=== PATIENT | female | born 1955 | race Caucasian/White ===

== ENCOUNTER 2016-08-24 02:00 | Observation (INO) | payer BC ==
[2016-08-24] MEDS ORDERED: NS 0.9% 1000 ML* 1,000 ML IV SCH (02:30)
[2016-08-24 03:18] LABS: Hematocrit 43 % (35-47); Hemoglobin 14.4 g/dl (12.0-16.0); Mean Corpuscular HGB Conc 33 g/dl (31-36); Mean Corpuscular Hemoglobin 32 pg (27-31); Mean Corpuscular Volume 96 fL (80-97); Mean Platelet Volume 8 um3 (7.4-10.4); Red Blood Count 4.51 10^6/ul (4.0-5.4); Red Cell Distribution Width 14 % (10.5-15); White Blood Count 5.6 10^3/ul (3.5-10.8)
[2016-08-24 03:26] LABS: ALT 13 U/L (7-52); AST 24 U/L (13-39); Albumin 4.1 g/dL (3.2-5.2); Alkaline Phosphatase 52 U/L (34-104); Anion Gap 6 mmol/L (2-11); BUN/Creatinine Ratio 13.3 (8-20); Blood Urea Nitrogen 8 mg/dL (6-24); C Reactive Protein 1.74 mg/L (< 5.00); CO2 Carbon Dioxide 25 mmol/L (22-32); Calcium 9.3 mg/dL (8.6-10.3); Chloride 94 mmol/L (101-111); Creatine Kinase 96 U/L (10-223); EGFR African American 130.7 (>60); EGFR Non-African American 101.6 (>60); Globulin 2.4 g/dL (2-4); Glucose 100 mg/dL (70-100); Lipase 13 U/L (11.0-82.0); Potassium 4.2 mmol/L (3.5-5.0); Sodium 125 mmol/L (133-145); Total Protein 6.5 g/dL (6.4-8.9)
[2016-08-24 03:29] LABS: Troponin I 0.01 ng/mL (<0.04)
[2016-08-24 03:44] LABS: Ammonia 51 mol/L (16-53)
[2016-08-24 03:46] LABS: B Type Natriuretic Peptide 31 pg/mL
[2016-08-24 04:01] LABS: TSH (Thyroid Stimulating Horm) 1.43 mcIU/mL (0.34-5.60)
[2016-08-24 04:06] LABS: Acetaminophen < 15 mcg/mL; Alcohol < 10 mg/dL (<10)
--- NOTE | 2016-08-24 05:50 | ED ---
Norman Hughes Salem, scribed for Royer Estrada MD on 08/24/16 at 0246 . Neurological HPI - HPI Summary HPI Summary: Patient is a 60 y/o F who presents to the ED per EMS s/p seizure about 1 hour ago. Pt has a hx of sz, but has not been on medication for the last 2 years. She states that she was here in March 2015 with similar sz, she saw Dr. Cardona who diagnosed her with convulsive syncope. She states that she has not been feeling well (chills and dizziness) for the last 24 hours. She states that she bit her tongue and was incontinent to urination during the sz. She denies CP , SOB, changes in urination or BM. Pt reports continued intake of EtOH, but denies withdrawal effects. - History of Current Complaint Chief Complaint: EDSeizure Stated Complaint: SEIZURE Hx Obtained From: Patient, Family/Clinical Material Handler, EMS Onset/Duration: Gradual Onset, Started minutes ago, Resolved Onset Severity: Moderate Current Severity: Moderate Seizure Severity: Moderate Pain Intensity: 5 Pain Scale Used: 0-10 Numeric Character: Dizzy, Other: - Chills. Syncope Context: Witnessed, Loss of Consciousness: No Aggravating: Nothing Alleviating: Nothing Associated Signs and Symptoms: Positive: Negative - Allergy/Home Medications Allergies/Adverse Reactions: Allergies Allergy/AdvReac Type Severity Reaction Status Date / Time No Known Allergies Allergy Verified 04/19/15 14:57 PMH/Surg Hx/FS Hx/Imm Hx Endocrine/Hematology History: Denies: Hx Anticoagulant Therapy, Hx Blood Disorders, Hx Blood Transfusions, Hx Bone Marrow Disease, Hx Diabetes, Hx Systemic Lupus Erythematosus, Hx Sickle Cell Disease, Hx Thyroid Disease, Hx Anemia, Hx Unexplained Bleeding, Other Endocrine/Hematological Disorders Cardiovascular History: Reports: Hx Hypertension Denies: Hx Pacemaker/ICD GI History: Reports: Hx Diverticulosis - HX diverticulitis with surgery for perfortated colon Denies: Hx Cirrhosis, Hx Crohn's Disease, Hx Gall Bladder Disease, Hx Gastroesophageal Reflux Disease, Hx Gastrointestinal Bleed, Hx Hiatal Hernia, Hx Irritable Bowel, Hx Jaundice, Hx Obstructive Bowel, Hx Ileostomy, Hx Pyloric Stenosis, Hx Ulcer, Other GI Disorders History: Denies: Hx Benign Prostatic Hyperplasia, Hx Chronic Renal Failure, Hx Dialysis, Hx Kidney Infection, Hx Kidney Stones, Hx Renal Disease, Other Problems/Disorders Musculoskeletal History: Reports: Hx Arthritis Denies: Hx Back Problems, Hx Bursitis, Hx Congenital Bone Abnormalities, Hx Fibromyalgia, Hx Gout, Hx Orthopedic Injury, Hx Osteoporosis, Hx Scoliosis, Hx Tendonitis, Other Musculoskeletal History Sensory History: Reports: Hx Contacts or Glasses Denies: Hx Cataracts, Hx Eye Injury, Hx Eye Prosthesis, Hx Glaucoma, Hx Legally Blind, Hx Macular Degeneration, Hx Vision Problem, Hx Deafness, Hx Hearing Aid, Hx Hearing Problem, Other Sensory Impairments Opthamlomology History: Reports: Hx Contacts or Glasses Denies: Hx Cataracts, Hx Eye Injury, Hx Eye Prosthesis, Hx Glaucoma, Hx Legally Blind, Hx Macular Degeneration, Hx Vision Problem, Other Sensory Impairments Neurological History: Reports: Hx Nerve Disease - Relapsing Remitting MS Denies: Hx Dementia, Hx Developmental Delay, Hx Headaches, Hx Migraine, Hx Seizures, Hx Spinal Cord Injury, Hx Transient Ischemic Attacks (TIA), Other Neuro Impairments/Disorders Psychiatric History: Denies: Hx Anxiety, Hx Attention Deficit Hyperactivity Disorder, Hx Eating Disorder, Hx Depression, Hx Panic Disorder, Hx Post Traumatic Stress Disorder, Hx Inpatient Treatment, Hx Community Mental Health Tx, Hx Schizophrenia, Hx Bipolar Disorder, Hx Suicide Attempt, Hx of Violent Episodes Against Others, Hx Substance Abuse, Other Psychiatric Issues/Disorders - Cancer History Hx Chemotherapy: No Hx Radiation Therapy: No Hx Palliative Cancer Treatment: No - Surgical History Surgery Procedure, Year, and Place: PERFIRATED COLON- REMOVED, HYSTERECTOMY Hx Anesthesia Reactions: No Infectious Disease History: No Infectious Disease History: Denies: Hx Clostridium Difficile, Hx Hepatitis, Hx Human Immunodeficiency Virus (HIV), Hx of Known/Suspected MRSA, Hx Shingles, Hx Tuberculosis, Hx Known/ Suspected VRE, Hx Known/Suspected VRSA, History Other Infectious Disease, Traveled Outside the [place] in Last 30 Days - Family History Known Family History: Positive: Other - [place]. - Social History Alcohol Use: Daily Alcohol Amount: 6-12 beers daily Hx Substance Use: No Substance Use Type: Reports: None Hx Tobacco Use: Yes Smoking Status (MU): Heavy Every Day Tobacco Smoker Type: Cigarettes Amount Used/How Often: 10 cigarettes Length of Time of Smoking/Using Tobacco: 27 years Have You Smoked in the Last Year: Yes Review of Systems Positive: Chills Positive: Other - Bit tongue with bleeding. Negative: Chest Pain Negative: Shortness Of Breath Positive: other - No changes in urination or BM. Neurological: Other - Seizure. Dizziness. All Other Systems Reviewed And Are Negative: Yes Physical Exam Triage Information Reviewed: Yes Vital Signs On Initial Exam: Initial Vitals Temp Pulse Resp BP Pulse Ox 98.3 F 108 20 167/92 99 08/24/16 02:00 08/24/16 02:00 08/24/16 02:00 08/24/16 02:00 08/24/16 02:00 Vital Signs Reviewed: Yes Appearance: Positive: Well-Appearing, No Pain Distress Skin: Positive: Warm, Skin Color Reflects Adequate Perfusion, Dry Head/Face: Positive: Normal Head/Face Inspection Eyes: Positive: EOMI, CHAPIS ENT: Positive: Other - Right side of tongue: ecchymotic. No active bleeding or open laceration. Neck: Positive: Supple, Nontender Respiratory/Lung Sounds: Positive: Clear to Auscultation, Breath Sounds Present Cardiovascular: Positive: RRR Abdomen Description: Positive: Nontender, Soft Musculoskeletal: Positive: Normal, Strength/ROM Intact Neurological: Positive: Normal, Sensory/Motor Intact, Alert, Oriented to Person Place, Time Psychiatric: Positive: Affect/Mood Appropriate Diagnostics - Vital Signs Vital Signs Temp Pulse Resp BP Pulse Ox 08/24/16 02:00 98.3 F 108 20 167/92 99 - Laboratory Lab Results: Lab Results 08/24/16 08/24/16 08/24/16 Range/Units 02:59 02:59 02:59 WBC 5.6 (3.5-10.8) 10^3/ul RBC 4.51 (4.0-5.4) 10^6/ul Hgb 14.4 (12.0-16.0) g/dl Hct 43 (35-47) % MCV 96 (80-97) fL MCH 32 H (27-31) pg MCHC 33 (31-36) g/dl RDW 14 (10.5-15) % Plt Count 214 (150-450) 10^3/ul MPV 8 (7.4-10.4) um3 Neut % (Auto) 79.4 (38-83) % Lymph % (Auto) 9.1 L (25-47) % Payne % (Auto) 10.4 H (1-9) % Eos % (Auto) 0.7 (0-6) % Baso % (Auto) 0.4 (0-2) % Absolute Neuts (auto) 4.4 (1.5-7.7) 10^3/ul Absolute Lymphs (auto) 0.5 L (1.0-4.8) 10^3/ul Absolute Monos (auto) 0.6 (0-0.8) 10^3/ul Absolute Eos (auto) 0 (0-0.6) 10^3/ul Absolute Basos (auto) 0 (0-0.2) 10^3/ul Absolute Nucleated RBC 0 10^3/ul Nucleated RBC % 0 Sodium 125 L (133-145) mmol/L Potassium 4.2 (3.5-5.0) mmol/L Chloride 94 L (101-111) mmol/L Carbon Dioxide 25 (22-32) mmol/L Anion Gap 6 (2-11) mmol/L BUN 8 (6-24) mg/dL Creatinine 0.60 (0.51-0.95) mg/dL Est GFR ( Amer) 130.7 (>60) Est GFR (Non-Af Amer) 101.6 (>60) BUN/Creatinine Ratio 13.3 (8-20) Glucose 100 (70-100) mg/dL Lactic Acid (0.5-2.0) mmol/L Calcium 9.3 (8.6-10.3) mg/dL Magnesium 2.0 (1.9-2.7) mg/dL Total Bilirubin 0.60 (0.2-1.0) mg/dL AST 24 (13-39) U/L ALT 13 (7-52) U/L Alkaline Phosphatase 52 (34-104) U/L Ammonia 51 (16-53) mol/L Total Creatine Kinase 96 (10-223) U/L CK-MB (CK-2) 1.9 (0.6-6.3) ng/mL Troponin I 0.01 (<0.04) ng/mL C-Reactive Protein 1.74 (< 5.00) mg/L B-Natriuretic Peptide 31 ( - 100) pg/mL Total Protein 6.5 (6.4-8.9) g/dL Albumin 4.1 (3.2-5.2) g/dL Globulin 2.4 (2-4) g/dL Albumin/Globulin Ratio 1.7 (1-3) Lipase 13 (11.0-82.0) U/L TSH 1.43 (0.34-5.60) mcIU/mL Acetaminophen < 15 mcg/mL Serum Alcohol < 10 (<10) mg/dL 08/24/16 Range/Units 02:59 WBC (3.5-10.8) 10^3/ul RBC (4.0-5.4) 10^6/ul Hgb (12.0-16.0) g/dl Hct (35-47) % MCV (80-97) fL MCH (27-31) pg MCHC (31-36) g/dl RDW (10.5-15) % Plt Count (150-450) 10^3/ul MPV (7.4-10.4) um3 Neut % (Auto) (38-83) % Lymph % (Auto) (25-47) % Payne % (Auto) (1-9) % Eos % (Auto) (0-6) % Baso % (Auto) (0-2) % Absolute Neuts (auto) (1.5-7.7) 10^3/ul Absolute Lymphs (auto) (1.0-4.8) 10^3/ul Absolute Monos (auto) (0-0.8) 10^3/ul Absolute Eos (auto) (0-0.6) 10^3/ul Absolute Basos (auto) (0-0.2) 10^3/ul Absolute Nucleated RBC 10^3/ul Nucleated RBC % Sodium (133-145) mmol/L Potassium (3.5-5.0) mmol/L Chloride (101-111) mmol/L Carbon Dioxide (22-32) mmol/L Anion Gap (2-11) mmol/L BUN (6-24) mg/dL Creatinine (0.51-0.95) mg/dL Est GFR ( Amer) (>60) Est GFR (Non-Af Amer) (>60) BUN/Creatinine Ratio (8-20) Glucose (70-100) mg/dL Lactic Acid 2.0 (0.5-2.0) mmol/L Calcium (8.6-10.3) mg/dL Magnesium (1.9-2.7) mg/dL Total Bilirubin (0.2-1.0) mg/dL AST (13-39) U/L ALT (7-52) U/L Alkaline Phosphatase (34-104) U/L Ammonia (16-53) mol/L Total Creatine Kinase (10-223) U/L CK-MB (CK-2) (0.6-6.3) ng/mL Troponin I (<0.04) ng/mL C-Reactive Protein (< 5.00) mg/L B-Natriuretic Peptide ( - 100) pg/mL Total Protein (6.4-8.9) g/dL Albumin (3.2-5.2) g/dL Globulin (2-4) g/dL Albumin/Globulin Ratio (1-3) Lipase (11.0-82.0) U/L TSH (0.34-5.60) mcIU/mL Acetaminophen mcg/mL Serum Alcohol (<10) mg/dL Result Diagrams: 08/24/16 02:59 08/24/16 02:59 Lab Statement: Any lab studies that have been ordered have been reviewed, and results considered in the medical decision making process. - Radiology CXR Radiology Interpretation Completed By: ED Physician - Normal. - CT BRAIN CT Interpretation Completed By: Radiologist - FINDINGS: There is no CT evidence of acute territorial infraction. Patchy periventricular and subcortical white matter hypoattenuations seen. These are nonspecific and can be seen in the setting of chronic microvascular ischemic changes. Intracranial vascular calcifications noted. There is no acute intracranial hemorrhage, mass effect or cerebral edema identified. The ventricles are unremarkable. Basilar cisterns are patent. No abnormal intra-axial or extra-axial fluid collection is seen. The bones of the calvarium and imaged skull base demonstrate no acute abnormality. The imaged paranasal sinuses and mastoid air cells are unremarkable. Imaged orbits are unremarkable. - EKG 0341 EKG Rhythm: Sinus Rhythm - NSR @ 88bpm. Ectopy: None EKG Interpretation: Minimal ST elevation anterior leads compared to prior EKG on 04/03/15. Re-Evaluation - Re-Evaluation First Eval Re-Evaluation Time: 04:11 Comment: Informed pt of imaigng results and plan. Course/Dx - Course Course Of Treatment: NO CRITICAL CARE TIME. DISCUSSED RESULTS WITH PATIENT/ . ADMIT HOSPITALIST STABLE. - Diagnoses Provider Diagnoses: Seizure, Hyponatremia - Physician Notifications Discussed Care Of Patient With: Orlando Jay Time Discussed With Above Provider: 04:02 Instructed by Provider To: Admit As Inpatient Admit/Transition Orders Completed By ED Provider: Yes Discharge - Discharge Plan Condition: Stable Disposition: ADMITTED TO [facility] The documentation as recorded by the Norman hidalgo Salem accurately reflects the service I personally performed and the decisions made by me, Royer Estrada MD.
[2016-08-24] MEDS: Heparin VIAL(*) 5000 UNITS/ML VIAL (FIVE THOUSAND) SUBCUT SCH ×3 (05:59→21:43)
[2016-08-24] MEDS ORDERED: levETIRAcetam 500 MG IVPREMIX* 500 MG/100 ML BAG IV SCH (06:00)
--- NOTE | 2016-08-24 07:50 | RAD ---
INDICATION: Seizure COMPARISON: Most recent comparison chest x-ray dated April 03, 2015 TECHNIQUE: Single AP portable view of the chest was obtained. FINDINGS: Image quality is compromised due to the relative inferiority of a portable chest x-ray. The heart and mediastinum exhibit normal size and contour. The lungs are grossly clear. There is no evidence of a large pleural effusion. Visualized bones are normal for the patient's age. IMPRESSION: No radiographic evidence for acute cardiopulmonary abnormality on this portable chest x-ray.
--- NOTE | 2016-08-24 07:50 | HP ---
CC: [facility]. * HISTORY AND PHYSICAL.: DATE OF ADMISSION: 08/24/16. CHIEF COMPLAINT: Seizure. HISTORY OF PRESENT ILLNESS: The patient is a 60-year-old woman, who said last night she was not feeling good before she went to the bed. She has had chills and kept waking up. She could not put finger on it, but she said something just come over her. Apparently, at 1 a.m. while asleep, her noticed she started shaking the whole bed. He watched her start hitting the night stand over and over and he had moved the lamp away. It lasted about two minutes. She lost control of her bladder and urinated. She bit her tongue. She bit her tongue. When it was done he immediately called 911 and she was brought to the ER for evaluation. The patient said she was quite confused afterwards as well and is still clearing up. PAST MEDICAL HISTORY: Significant for MS and hypertension. PAST SURGICAL HISTORY: Significant for hysterectomy and colon resection due to perforation secondary to diverticulitis. CURRENT MEDICATIONS: List is being updated, not available for review. ALLERGIES: She has no known drug allergies to medications. FAMILY HISTORY: Significant for cancer. SOCIAL HISTORY: Still smokes two-thirds of a pack per day. Denies need for nicotine replacement. Drinks beer occasionally 5 to 6 nights. She is . She has step children. Her surrogate decision maker is her , Cyril Noriega. REVIEW OF SYSTEMS: A 14-point review of systems was completed with the patient. All pertinent positives and negatives are in the history of present illness, otherwise it is negative. PHYSICAL EXAMINATION GENERAL: A pleasant woman, lying in bed, in no acute distress. VITAL SIGNS: Temperature 98.3 degrees, heart rate 108 beats per minute, respiratory rate 20 breaths per minute, pulse oxygenation 99% on room air, blood pressure 167/92. HEENT: Normocephalic, atraumatic. Pupils are equal, round, and reactive to light. Moist mucous membranes. NECK: Supple. No JVD, bruits, palpable thyroid, or lymphadenopathy. CHEST: Clear to auscultation and percussion bilaterally. CARDIOVASCULAR: S1, S2 appreciated. Regular rate and rhythm. No murmurs, gallops or rubs. ABDOMEN: Positive bowel sounds in all 4 quadrants. Soft, nontender, nondistended. No hepatosplenomegaly. EXTREMITIES: No cyanosis, clubbing or edema. +2 pulses bilaterally. NEURO: Alert and oriented x3, moves all extremities. Motor strength is 5/5 in upper and lower extremities. Cranial nerves II through XII grossly intact. SKIN: No rashes or abnormalities. DIAGNOSTIC STUDIES/LABORATORY DATA: White blood cell count 5.6, hemoglobin 14.4, hematocrit 43, platelets are 214. Sodium 125, potassium 4.2, chloride 95, CO2 25, BUN 8, creatinine 1.60, glucose 100. Lactic acid is 2. Urine is negative for alcohol. EKG shows normal sinus rhythm at 88 beats per minute, normal axes, no acute ST- T wave changes. Brain CT shows no CT evidence of acute territorial infarction, patchy periventricular and subcortical white matter hypoattenuation seen. These are nonspecific and can be seen in the setting of chronic microvascular ischemic changes, intracranial vascular calcification noted. There is no acute intracranial hemorrhage, mass effect or cerebral edema identified. The ventricles are unremarkable. Basal cisterns are patent. Normal intraaxial and extraaxial fluid collection is seen. The bones of the calvarium and the image of skull base demonstrate no acute abnormality. The images of paranasal sinuses and mastoid air cells are unremarkable. Imaged orbits are unremarkable. ASSESSMENT AND PLAN: 1. Seizure. Actually the patient came in, was evaluated and thought to have convulsive syncope. However, this does sound like a true seizure to me. I do not know why she had chills and she denies urinary symptoms, but I will get a urinalysis while here. She was started on Keppra 500 mg IV q.12 hours. I will get an EEG. I will get an MRI of her brain and we should ask Neurology to evaluate her as well. 2. Multiple sclerosis. We will get current medication list updated and treat. She was on Copaxone and apparently is on same. 3. Hypertension. Blood pressure is somewhat high, but we will have to get her medications. She was on amlodipine. We will update this list shortly. 4. FEN. Regular diet. 5. DVT prophylaxis, heparin subcu. 6. The patient is a full code. TIME SPENT: Over 75 minutes were spent on this H and P, more than 40 minutes were spent in direct face to face contact with the patient in evaluation, physical exam, counseling and coordination of care. [id number] #: [id number] [facility] MEDICAL CENTERGilberto
--- NOTE | 2016-08-24 07:55 | RAD ---
INDICATION: Seizure COMPARISON: CT of the brain April 03, 2015 TECHNIQUE: Contiguous axial sections of the brain were obtained from the skull base to the vertex without contrast. FINDINGS: The ventricles, cisterns and sulci are within normal limits. There is mild periventricular and subcortical white matter hypoattenuation most consistent with chronic microvascular disease. Immediately lateral to the anterior horn of the left ventricle (image 11) there is a more focal 1 cm area of hypoattenuation. More inferiorly in the white matter tracts of the frontal lobe (image 15) there is a more focal 7 mm area of hypoattenuation. Both of these areas are unchanged from the previous CT of the brain. At the right subinsular cortex (image 13) there is a 6 mm focal hypodensity at the border of the robles and white matter that is unchanged from the previous CT of the brain. Otherwise the robles-white matter differentiation is adequately maintained and there is no sulcal effacement. No significant focal abnormality or mass effect is present. There is no evidence for intracranial hemorrhage. No significant focal osseous abnormality is present. The visualized portion of the paranasal sinuses and mastoid air cells appear clear. IMPRESSION: CT findings are consistent with chronic microvascular disease at has not changed substantially since the April 03, 2015 CT of the brain.
[2016-08-24 09:05] LABS: Prolactin 9.7 ng/mL (1.0-25.0)
[2016-08-24 10:20] LABS: BUN/Creatinine Ratio 14.9 (8-20); Calcium 8.3 mg/dL (8.6-10.3); EGFR African American 173.3 (>60); EGFR Non-African American 134.7 (>60); Potassium 3.9 mmol/L (3.5-5.0)
[2016-08-24] MEDS ORDERED: Gadoteridol* (CONTRAST) 279.3 MG/ML 10 ML IV ONE (11:12)
--- NOTE | 2016-08-24 11:48 | RAD ---
HISTORY: Seizure, history of multiple sclerosis COMPARISONS: April 22, 2015 TECHNIQUE: The following sequences were obtained of the head: Sagittal FLAIR images, axial T2-weighted images, axial FLAIR images, axial susceptibility weighted images, axial T1-weighted images, coronal T1, T2 and FLAIR images through the mesial temporal lobes. Additionally, axial diffusion-weighted images were obtained with calculated apparent diffusion coefficients. Additionally, sagittal and axial T1 weighted images with thin section coronal T1-weighted images through the mesial temporal lobes were obtained after contrast enhancement with a gadolinium-based intravenous contrast agent. FINDINGS: HEMORRHAGE/INFARCT: There is no hemorrhage or acute infarct. MASSES/SHIFT: There is no mass or shift. EXTRA-AXIAL SPACES/MENINGES: There are no extra-axial fluid collections. SULCI AND VENTRICLES: The sulci and ventricles are normal in size and position for the patient's stated age. CEREBRUM: Again noted are multiple white matter lesions in the periventricular and subcortical white matter. These are similar in appearance and distribution to the April 22, 2015 examination. There is no associated abnormal enhancement. The mesial temporal lobes are symmetric. There is no appreciable cortical dysplasia or heterotopia. BRAINSTEM: There are no focal parenchymal abnormalities. CEREBELLUM: There are no focal parenchymal abnormalities. The cerebellar tonsils are normal in size and position. SELLA: The sella is normal. PINEAL: The pineal region is clear. CP ANGLE/TEMPORAL BONES: The labyrinthine structures are grossly normal. VESSELS: Normal flow-voids are noted within the visualized vertebral vasculature. DIFFUSION ABNORMALITIES: There are no diffusion abnormalities. PARANASAL SINUSES/MASTOIDS: The paranasal sinuses are clear. ORBITS: The orbits are unremarkable. BONES AND SOFT TISSUE: No bone or soft tissue abnormalities are noted. OTHER: None IMPRESSION: 1. MULTIPLE WHITE MATTER LESIONS, MOST CONSISTENT WITH DEMYELINATING PLAQUE GIVEN THE HISTORY OF MULTIPLE SCLEROSIS. 2. THERE IS BEEN NO SIGNIFICANT CHANGE COMPARED TO APRIL 22, 2015. 3. THERE IS NO ASSOCIATED ABNORMAL ENHANCEMENT TO SUGGEST ACTIVE INFLAMMATION. 4. THERE IS NO APPRECIABLE CORTICAL DYSPLASIA OR HETEROTOPIA. THE MESIAL TEMPORAL LOBES ARE SYMMETRIC.
[2016-08-24] MEDS ORDERED: Lidocaine 2% VISCOUS* 15 ML UDC SWISH SPIT PRN (13:48)
--- NOTE | 2016-08-24 14:28 | PN ---
Subjective Date of Service: 08/24/16 Interval History: This is a 60 yo female that was admitted yesterday after a convulsant episode at home. Patient was sleeping when something woke her up and she had an odd sensation after which her reported that she convulsed and she remained lethargic and somewhat confused for sometime after reaching the ER. She was started on IV Keppra. She had a similar episode in [place] but it sounded to be more of a vagal episode at that time and was not started on an antiepileptic at that time. She has not had any additional seizure activity since admission. She reports that she is quite lethargic today but denies VIRAMONTES, new weakness, numbness or tingling. Objective Active Medications: Heparin Sodium (Porcine) (Heparin Vial(*)) 5,000 units SUBCUT Q8HR [facility] Last Admin: 08/24/16 13:50 Dose: 5,000 units Sodium Chloride (Ns 0.9% 1000 Ml*) 1,000 mls @ 150 mls/hr IV PER RATE [facility] Last Admin: 08/24/16 02:35 Dose: 150 mls/hr Levetiracetam (Keppra Tab*) 500 mg PO BID [facility] Lidocaine (Xylocaine 2% Viscous*) 20 ml SWISH SPIT TID PRN PRN Reason: tongue pain Last Admin: 08/24/16 14:14 Dose: 20 ml Vital Signs: Temp Pulse Resp BP Pulse Ox 98.2 F 80 15 141/80 98 08/24/16 11:54 08/24/16 11:54 08/24/16 11:54 08/24/16 11:54 08/24/16 11:54 Oxygen Devices in Use Now: None Appearance: Fatigued appearing woman in NAD. Ears/Nose/Mouth/Throat: - - laceration and ecchymosis of the R portion of her tongue that is not actively bleeding Respiratory: Symmetrical Chest Expansion and Respiratory Effort, Clear to Auscultation Cardiovascular: NL Sounds; No Murmurs; No JVD, RRR Extremities: No Edema Neurological: Alert and Oriented x 3 Result Diagrams: 08/24/16 02:59 08/24/16 09:27 Additional Lab and Data: . Assess/Plan/Problems-Billing Assessment: This is a 60 yo female with MS who presented after a convulsant episode at home that occurred during sleep. - Patient Problems (1) Seizure Comment: Episode consistent with a seizure Appreciate neuro consult No change noted on MRI, EEG report pending but reviewed by Dr Cardona Plan to cont Keppra at 500 mg bid (2) Hyponatremia Comment: Patient states that she has not restarted the HCTZ stopped during her last admission Likely due to beer consumption Improving with NS rehydration (3) Multiple sclerosis Comment: Stable Followed by Dr Cardona No new lesions on MRI (4) HTN (hypertension) Comment: Normotensive (5) ETOH abuse Comment: Patient admits to regular beer consumption, but vague about the volume She doesn't give a clear answer when asked if she thinks that her alcohol consumption is of concern to her or family members (6) Full code status (7) DVT prophylaxis Comment: heparin sub-q Status and Disposition: Inpatient. Anticipate likely dc tomorrow.
--- NOTE | 2016-08-24 16:07 | CONS ---
CC: [facility] * NEUROLOGY CONSULTATION: DATE OF CONSULTATION: 08/24/16 REFERRING PROVIDER: Dr. Jay. LOCATION: She is an inpatient, room 434. CHIEF COMPLAINT: Seizure. HISTORY OF PRESENT ILLNESS: Gayathri Duffy is a 60-year-old woman well known to me for outpatient treatment of her multiple sclerosis. She was hospitalized in March with a convulsive episode, which I thought was probably convulsive syncope. Last night, she was not feeling well and went to bed a little early. 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 According to the history from Dr. Jay got from her , he awoke with her convulsion next to her in bed. It lasted apparently at least several minutes. She was incontinent of urine and ended up biting her tongue. After that she was confused and ambulated out of the house by ambulance which was summoned. She was started on levetiracetam this morning. PAST MEDICAL HISTORY: Notable for: 1. Multiple sclerosis. 2. Hypertension. MEDICATIONS: Medications at home include: 1. Copaxone. 2. Climara. 3. Multivitamins. 4. Losartan 100 mg p.o. q.d. ALLERGIES: She did not have a drug allergies. FAMILY HISTORY: Noncontributory. REVIEW OF SYSTEMS: Negative for recent fevers or dysuria or coughs. Weight has been stable. She is administrating her Copaxone regularly. No change in vision or double vision. No back or neck pain. No headache. No recent falls. PHYSICAL EXAMINATION: She is well-nourished and well-hydrated, temperature 98.2 , blood pressure 140/80, heart rate in the 70s and regular. Heart is in a regular rate and rhythm without murmurs. Carotid pulses are symmetrical and there are no cervical bruits. Head is atraumatic. Neck is supple. Lungs are clear. There are lateral bite mauricio on her tongue, particularly the right side. Neurological Exam: Pupils react equally and there is no afferent pupillary defect. Funduscopic exam reveals pale discs bilaterally. Eye movements are choppy, but full. Facial musculature is symmetric. Speech has a mild lingual dysarthria. Facial sensation is intact to light touch. Motor exam reveals normal muscle tone and strength in limbs proximally and distally. There may be a mild spastic catch in the legs. [id number] maneuvers are normal. There is no rest or action tremor. Reflexes are quite brisk diffusely. She is a little bit tired, but otherwise alert. She is oriented to person, place, and time. Language is fluent. She has good attention, concentration, and fund of knowledge. DIAGNOSTIC STUDIES/LABORATORY DATA: Laboratory data includes an EEG, which shows bihemispheric slowing, worse on the left side. There are some poorly formed left mid temporal sharp waves. Brain MRI reveals multiple lesions consistent with her multiple sclerosis, but no new or enhancing lesions since her last MRI. Other laboratory data is notable for normal CBC, normal INR, and PTT, chemistry profile notable for sodium of 125 early this morning, which came to 128 on recheck. Her troponin is 0.01. IMPRESSION AND PLAN: Impression is that of a seizure probably secondary to her multiple sclerosis. Her sodium is a little bit low, but not much, and at this point it is pretty clear that she was postictal by description. I agree with the starting of Keppra 500 mg twice per day. I told Gayathri she cannot drive and must notify the department of motor vehicles. I told her that Keppra can cause some side effects including sedation and mood disorders and irritability. I told her that if she has significant side effects, we will switch to different anticonvulsant. I will see her in followup in my office. [id number]/[facility] #: [id number] JELANI
[2016-08-24] MEDS: levETIRAcetam TAB* 500 MG PO SCH (19:37)
--- NOTE | 2016-08-25 03:35 | EEG ---
ELECTROENCEPHALOGRAPHY: DATE OF STUDY: 08/24/16 - ROOM #434 REFERRING PHYSICIAN: Dr. Jay. LOCATION: She is an inpatient in room [address]-South. CLINICAL PROBLEM: New-onset seizure in a patient with multiple sclerosis. MEDICATIONS: Include: 1. Keppra. 2. Subcutaneous heparin. 3. Copaxone. REPORT: This 16-channel EEG is remarkable for background rhythms at the onset of the tracing consisting of fairly diffuse theta activity. Interspersed are faster rhythms bifrontally and a poorly formed alpha rhythm in the occipital derivations. The patient is awake. Slower rhythms are seen more predominantly from the left hemisphere than the right. The patient drowses with increase in slow activity, but stage II sleep is not achieved. Occasional phase reversing in the left midtemporal sharp waves and occasional midtemporal spikes are seen, particularly later in the tracing and particularly during drowsiness. CLINICAL IMPRESSION: Abnormal EEG due to generalized slowing and disorganization of background rhythms as well as phase reversing spikes and sharp waves in the left temporal region consistent with a possible epileptiform focus in the left temporal region. [id number]/[facility] #: [id number] MTDD
[2016-08-25] MEDS: Heparin VIAL(*) 5000 UNITS/ML VIAL (FIVE THOUSAND) SUBCUT SCH (04:58)
[2016-08-25 07:27] VITALS: BP 137/83
[2016-08-25] MEDS: levETIRAcetam TAB* 500 MG PO SCH (07:30)
[2016-08-25 08:00] LABS: Urine Bacteria Absent (Absent); Urine Bilirubin Negative (Negative); Urine Glucose Negative (Negative); Urine Nitrite Negative (Negative)
[2016-08-25 09:08] LABS: Calcium 8.7 mg/dL (8.6-10.3); EGFR African American 161.3 (>60); EGFR Non-African American 125.4 (>60); Potassium 3.8 mmol/L (3.5-5.0)
--- NOTE | 2016-08-25 12:30 | DS ---
CC: JEANNIE Qiu; Dr. Dulce MD. * DISCHARGE SUMMARY: DATE OF ADMISSION: 08/24/16 DATE OF DISCHARGE: 08/25/16 PRIMARY CARE PROVIDER: JEANNIE Qiu CONSULTING NEUROLOGIST: Toby Cardona MD. DISCHARGING PROVIDER: VICKEY Loera. SUPERVISING PHYSICIAN: Joshua Bender MD.* (DICTATED BY VICKEY LOERA) PRIMARY DISCHARGE DIAGNOSES: 1. Seizure - starting antiepileptics. 2. Hyponatremia. SECONDARY DISCHARGE DIAGNOSES: 1. Multiple sclerosis, which appears to be stable and followed by Dr. Cardona. 2. Hypertension. 3. Alcohol abuse. DISCHARGE MEDICATIONS: 1. Betamethasone 0.05% ointment applied topically twice daily as needed. 2. Climara 0.25 mg transdermally weekly. 3. Copaxone 20 mg subcu daily. 4. Losartan 100 mg p.o. daily. 5. Multivitamin 1 tablet p.o. daily. 6. Keppra 500 mg p.o. twice daily. MEDICATION CHANGES: Start Keppra. HOSPITAL IMAGIN. CT of the brain shows chronic microvascular disease changes that have not changed since prior scan. 2. Chest x-ray shows no acute process. 3. MRI of the brain shows multiple white matter lesions most consistent with demyelinating plaque. There has been no significant change compared to April 2015 exam. There is no associated abnormal enhancement to suggest active inflammation. 4. EKG demonstrates a sinus rhythm without ischemic changes. 5. EEG shows an abnormal EEG due to generalized swelling, disorganization of background rhythm as well as phase reversing spikes and sharp waves in the left temporal region consistent with possible epileptiform focus in the left temporal region. HOSPITAL COURSE: This is a 60-year-old female with multiple sclerosis followed by Dr. Cardona who presented after a seizure like episode at home. The patient was lying in bed and asleep, when she awoke for unknown reasons and she states that she had a prodrome sensation that she has difficulty describing but sounded almost like a feeling of anxiety or tingling sensation across her body and then per her 's report, she subsequently had a convulsion episode after which she was quite weak and confused for some time. She was transported to the emergency department for further evaluation. Initial labs demonstrated a normal CBC, moderate hyponatremia with a sodium of 125. Remainder of labs unremarkable. Initial CT of the brain showed nothing acute. The patient was subsequently admitted to the hospital for concern of a seizure. The patient had a similar episode in March of this year, but she had more of a prodrome that seemed consistent with a vagal episode. The patient was not started on anticonvulsant medications at that time. She has been asymptomatic since. During the patient's hospital stay, she remained asymptomatic. No additional seizure like activity. She was evaluated by Dr. Cardona who is also her primary neurologist. An MRI of her brain was completed, which showed no active plaques or significant change when compared to her prior study from 2016. The patient was started on Keppra and seemed to tolerate this well. The patient was noted to be hyponatremic and this was a similar presentation to when she was evaluated in March. The patient does have a significant history of beer consumption. The patient was not terribly forthcoming about her drinking history during her hospital stay, but simply stated "she is not drinking any less." Some education was provided as to how this can lower her seizure threshold and she was encouraged to decrease her volume or discontinue her use altogether. Her sodium levels improved with hydration with normal saline. DISPOSITION AND FOLLOWUP PLAN: The patient is being discharged to home. She received specific instructions to not be driving or operate other heavy equipment. She is being discharged with Keppra as listed above. Followup made for her to see Dr. Cardona in several weeks and would recommend followup with her primary care provider regarding this hospital stay as well. VICKEY LOERA [id number]/[facility] #: [id number] JELANI
== END 2016-08-25 09:50 | disposition home or self-care (01) | DRG 53 ==
LOC: ED 02:00 → INTOOBSV 05:12 → MEDTELE 05:12
PROVIDERS: ADMIT Internal Medicine; ATTEND Internal Medicine
PROC: 4A10X4Z Monitoring of Central Nervous Electrical Activity, External Approach (ICD-10-PCS; principal; 2016-08-24)
DX: R56.9 Unspecified convulsions (principal); E87.1 Hypo-osmolality and hyponatremia; I10 Essential (primary) hypertension; M19.90 Unspecified osteoarthritis, unspecified site; G35 Multiple sclerosis; Z80.9 Family history of malignant neoplasm, unspecified; F17.210 Nicotine dependence, cigarettes, uncomplicated; F10.10 Alcohol abuse, uncomplicated; Y90.9 Presence of alcohol in blood, level not specified
CPT/HCPCS: 36415; 70450; 70553; 71010; 80048; 80053; 80320; 80329; 81003; 81015; 82140; 82550; 82553; 83605; 83690; 83735; 83880; 84146; 84443; 84484; 85025; 85610; 85730; 86140; 87086; 93005; 95819; 99406; A9270-GY; A9579; G0480; J1644

== ENCOUNTER 2019-09-09 08:43 | Observation (INO) ==
[~2019-09-09 08:43] MED LIST: Lactated Ringers 1000 ml BAG 1,000 ML IV SCH
[2019-09-09] MEDS ORDERED: Buffered Lidocaine 1% SYRIN 1 ml INTRADERM ONE (09:10)
[2019-09-09] MEDS ORDERED: ceFAZolin 2 GM PREMIX in ORs 2 GM/50 ML BAG ONE (09:10)
[2019-09-09] MEDS ORDERED: HYDROmorphone 1 MG/1 ML SYRINGE IV PRN (10:11)
[2019-09-09] MEDS ORDERED: Naloxone 0.4 mg VIAL 0.4 mg/ml 1 ml VIAL IV PRN (10:11)
[2019-09-09] MEDS ORDERED: fentaNYL 100 mcg/2 ml 50 MCG/ML VIAL ONE (10:51)
[2019-09-09] MEDS ORDERED: Midazolam 2 mg/2 ml VIAL 1 mg/ml 2 ml VIAL (2 mg) ONE (10:52)
[2019-09-09] MEDS ORDERED: Acetaminophen IV 1 GM/100ML 100 ML ONE (11:31)
[2019-09-09] MEDS ORDERED: Bupivacaine 0.5% SDV PF 30ML VIAL ONE (11:32)
[2019-09-09] MEDS ORDERED: Lactulose 30 ml UDC PO PRN (13:30)
[2019-09-09] MEDS ORDERED: Ondansetron 4 mg VIAL 2 MG/ML 2 ml VIAL IV PRN (13:30)
[2019-09-09] MEDS ORDERED: diPHENhydraMINE 25 mg TAB PO PRN (13:30)
[2019-09-09] MEDS ORDERED: diPHENhydraMINE IV 50 MG/ML 1 ml VIAL (BENADRYL) IV PRN (13:30)
[2019-09-09] MEDS ORDERED: Magnesium Hydroxide LIQ 30 ML UDC PO PRN (13:30)
[2019-09-09] MEDS ORDERED: Morphine 2 MG/ML SYRINGE IV PRN (13:30)
[2019-09-09] MEDS ORDERED: Ondansetron ODT 4 mg TAB 4 MG TAB PO PRN (13:30)
[2019-09-09] MEDS: Lactated Ringers 1000 ml BAG 1,000 ML IV SCH (14:40)
[2019-09-09] MEDS ORDERED: CMC:Levetiracetam XR 500 MG TAB.XR PO SCH (18:00)
[2019-09-09 18:27] LABS: BUN/Creatinine Ratio 13.6 (8-20); Calcium 8.5 mg/dL (8.6-10.3); EGFR African American 124.2 (>60); EGFR Non-African American 102.6 (>60); Potassium 3.6 mmol/L (3.5-5.0)
[2019-09-09] MEDS: ceFAZolin 1 GM ADVAN(*) 1 GM in NS 0.9% 50 ML 50 ML IVPB SCH (20:13)
[2019-09-09] MEDS: Magnesium Hydroxide LIQ 30 ML UDC PO SCH (21:49)
[2019-09-10] MEDS ORDERED: Polyethylene Glycol 3350 17 GM PACKET PO PRN (00:01)
[2019-09-10] MEDS: ceFAZolin 1 GM ADVAN(*) 1 GM in NS 0.9% 50 ML 50 ML IVPB SCH ×2 (04:00→11:01)
[2019-09-10] MEDS: Lactated Ringers 1000 ml BAG 1,000 ML IV SCH (04:00)
[2019-09-10 05:56] LABS: Hematocrit 28 % (35-47); Hemoglobin 10.1 g/dL (12.0-16.0); Platelet Count 210 10^3/uL (150-450)
[2019-09-10 06:28] LABS: Calcium 8.5 mg/dL (8.6-10.3); EGFR African American 150.3 (>60); EGFR Non-African American 124.2 (>60); Potassium 4.4 mmol/L (3.5-5.0)
[2019-09-10] MEDS: Magnesium Hydroxide LIQ 30 ML UDC PO SCH (08:03)
[2019-09-10] MEDS ORDERED: Vitamin THERAPEUTIC TAB PO SCH (09:00)
[2019-09-10] MEDS ORDERED: Glatiramer(NF) 20 MG/ML 1 ML SYRINGE SUBCUT SCH (09:00)
[2019-09-10 11:35] VITALS: BP 120/69
== END 2019-09-10 14:30 | disposition home or self-care (01) ==
LOC: INTOOBSV 08:43 → AA 08:43 → SSU 13:30
PROVIDERS: ADMIT Orthopaedic Surgery Adult Reconstructive Orthopaedic Surgery; ATTEND Orthopaedic Surgery Adult Reconstructive Orthopaedic Surgery